=== PATIENT | female | born 1995 | race Caucasian/White ===

== ENCOUNTER → 2016-04-22 | Outpatient (CLI) | payer MEDICAID ==
[2016-04-22 16:08] LABS: MEAN CORPUSCULAR HEMOGLOBIN 30.1 PG (26.0-34.0); MEAN CORPUSCULAR HGB CONC 34.4 g/dL (31.0-37.0); MEAN CORPUSCULAR VOLUME 88 FL (80-100); MEAN PLATELET VOLUME 9.4 FL (6.0-9.5); PLATELET COUNT 217 10^3uL (150-450); WHITE BLOOD COUNT 5.04 10^3uL (4.0-11.0)
[2016-04-22 16:23] LABS: BAND NEUTROPHILS % 3 % (0-6); SEGMENTED NEUTROPHILS % 70 % (51-67)
[2016-04-22 16:24] LABS: EOSINOPHILS % 1 % (0-4); LYMPHOCYTES # 0.8 #; MONOCYTES # 0.5 #; MONOCYTES % 10 % (3-11); RBC MORPH NORMAL (NORMAL); TOTAL CELLS COUNTED 100
== END ==
LOC: LAB 15:58
PROVIDERS: ATTEND Family Medicine
DX: N92.1 Excessive and frequent menstruation with irregular cycle (principal); D50.8 Other iron deficiency anemias
CPT/HCPCS: 36415; 84703; 85025

== ENCOUNTER → 2016-07-24 | Outpatient (CLI) | payer OTHER, MEDICAID ==
[~2016-07-24] MED LIST: AMOX500T2 PO; DOCU-243 PO; FERR-74 PO; FLUC100T PO; IBP200T PO; IBUP-1772 PO; NORE1PAT TD; OXYC1TAB87 PO; PREN-93 PO; PREN1TAB79 PO; SERT50TA PO; SULF1TAB35 PO
--- NOTE | 2016-07-24 15:28 | Diagnostic Imaging Report ---
INDICATION: Punched an object on Thursday, now with pain. TECHNIQUE: Three views of the right hand. CORRELATION STUDY: None. FINDINGS: There is a subtle lucency at the base of the fifth metacarpal. There does appear to be adjacent soft tissue swelling suspect for nondisplaced fracture line. The remainder of the osseous structures appears to be intact and unremarkable. Visualized carpal bones along with the distal radius and ulna are intact. IMPRESSION: Findings suggestive of a nondisplaced subtle fracture at the most proximal base of the fifth metacarpal with associated soft tissue swelling. Correlation to patient's symptoms and site of pain recommended. Report given to Dr. Shirley at 3:27 p.m. 07/24/2016/cb Dictated by: Dictated on workstation # [id number]
== END ==
LOC: RAD 14:13
PROVIDERS: ATTEND Family Medicine
DX: S62.346A Nondisplaced fracture of base of fifth metacarpal bone, right hand, initial encounter for closed fracture (principal); W22.8XXA Striking against or struck by other objects, initial encounter
CPT/HCPCS: 73130

== ENCOUNTER → 2016-07-31 | Outpatient (CLI) | payer MEDICAID ==
--- NOTE | 2016-07-31 19:13 | Diagnostic Imaging Report ---
INDICATION: History of fracture. COMPARISON: Exam compared to 07/24/2016. FINDINGS: There is faint incomplete lucency along the ulnar margin of the cortex of the proximal fifth metacarpal. This is redemonstrated and not grossly changed from prior. It is unclear if this is an incomplete nondisplaced extra-articular fracture or if this is incidental variant, correlate with the site of pain. We do again note some regional soft tissue swelling in support of the diagnosis of fracture. No other potential osseous injury. IMPRESSION: Subtle lucency along the ulnar cortex of the base of the fifth metacarpal may reflect an incomplete nondisplaced extra-articular fracture with overlying swelling. This has not appreciably changed from prior. Dictated by: Dictated on workstation # [id number]
== END ==
LOC: RAD 14:23
PROVIDERS: ATTEND Family Medicine
DX: S62.346D Nondisplaced fracture of base of fifth metacarpal bone, right hand, subsequent encounter for fracture with routine healing (principal); X58.XXXD Exposure to other specified factors, subsequent encounter
CPT/HCPCS: 73130

== ENCOUNTER → 2016-08-04 | Outpatient (REF) | payer MEDICAID | LOC: LAB 13:54 | PROVIDERS: ATTEND Family Medicine | DX: Z34.81 Encounter for supervision of other normal pregnancy, first trimester (principal) | CPT/HCPCS: 84702 ==